=== PATIENT | male | born 1950 | race Caucasian/White ===

== ENCOUNTER 2017-07-23 15:03 | Emergency (ER) | payer MEDICARE ==
--- NOTE | 2017-07-23 15:16 | ER Document Report ---
ED Medical Screen (RME) - General Chief Complaint: Arm Problem Stated Complaint: LEFT ARM INJURY Time Seen by Provider: 07/23/17 15:13 Mode of Arrival: Ambulatory Information source: Patient TRAVEL OUTSIDE OF THE [place] IN LAST 30 DAYS: No - HPI Patient complains to provider of: L arm bruising Onset: Other - pt with laceration to L arm 2 days (was sutured at [facility]) ago -- bruising started yesterday and has increased to entire arm today. Not currently on blood thinners. - Related Data Allergies/Adverse Reactions: Penicillins Allergy (Verified 07/23/17 15:07) Past Medical History Renal/ Medical History: Denies: Hx Peritoneal Dialysis Physical Exam - Vital signs Vitals: Temp Pulse Resp BP Pulse Ox 98.1 F 73 16 148/86 H 98 07/23/17 15:06 07/23/17 15:06 07/23/17 15:06 07/23/17 15:06 07/23/17 15:06 Course - Vital Signs Vital signs: Temp Pulse Resp BP Pulse Ox 98.1 F 73 16 148/86 H 98 07/23/17 15:06 07/23/17 15:06 07/23/17 15:06 07/23/17 15:06 07/23/17 15:06
[2017-07-23 16:17] LABS: ABSOLUTE EOSINOPHILS # (AUTO) 0.3 10^3/uL (0.0-0.6); ABSOLUTE LYMPHOCYTES (AUTO) 1.3 10^3/uL (0.5-4.7); ABSOLUTE MONOCYTES (AUTO) 0.6 10^3/uL (0.1-1.4); ABSOLUTE NEUT (AUTO) 4.3 10^3/uL (1.7-8.2); BASOPHILS % (AUTO) 0.5 % (0-2); EOSINOPHILS % (AUTO) 4.3 % (0-6); HEMATOCRIT 40.9 % (37.9-51.0); HEMOGLOBIN 14.4 g/dL (13.5-17.0); HGB HCT DIFFERENCE 2.3; LYMPHOCYTES % (AUTO) 20.1 % (13-45); MEAN CORPUSCULAR HEMOGLOBIN 32.2 pg (27.0-33.4); MEAN CORPUSCULAR HGB CONC 35.1 g/dL (32.0-36.0); MEAN CORPUSCULAR VOLUME 92 fl (80-97); MONOCYTES % (AUTO) 9.1 % (3-13); RED BLOOD COUNT 4.47 10^6/uL (4.35-5.55); RED CELL DISTRIBUTION WIDTH 12.6 % (11.5-14.0); WHITE BLOOD COUNT 6.5 10^3/uL (4.0-10.5)
[2017-07-23 16:31] LABS: PROTHROMBIN TIME 12.7 SEC (11.4-15.4)
[2017-07-23 16:32] LABS: ALANINE AMINOTRANSFERASE 66 U/L (21-72); ALKALINE PHOSPHATASE 90 U/L (38-126); ANION GAP 11 (5-19); ASPARTATE AMINO TRANSFERASE 40 U/L (17-59); BILIRUBIN,DIRECT 0.3 mg/dL (0.0-0.4); BILIRUBIN,TOTAL 0.7 mg/dL (0.2-1.3); BLOOD UREA NITROGEN 17 mg/dL (7-20); CALCIUM 9.2 mg/dL (8.4-10.2); CARBON DIOXIDE 28 mmol/L (22-30); CHLORIDE 104 mmol/L (98-107); GLUCOSE 116 mg/dL (75-110); PARTIAL THROMBOPLASTIN TIME 28.2 SEC (23.5-35.8); POTASSIUM 3.8 mmol/L (3.6-5.0); SODIUM 143.1 mmol/L (137-145); TOTAL PROTEIN 6.6 g/dL (6.3-8.2)
--- NOTE | 2017-07-23 19:24 | ER Document Report ---
ED General - General Chief Complaint: Arm Problem Stated Complaint: LEFT ARM INJURY Time Seen by Provider: 07/23/17 15:13 Mode of Arrival: Ambulatory Information source: Patient Notes: This is a 67-year-old man status post recent arm laceration which was sutured out of town 3 days ago who presents to the emergency room with a ecchymoses down his left arm. Patient states that there was a lot of swelling around the sutured site. He states the swelling is not increased. He is just noticed the bruising come down below the elbow and extend into the forearm. He denies any fever, chills, warmth or discharge. He denies any significant pain. Again, he denies any increased swelling of the left upper extremity. He states he was working with a saw and had initially cut himself over the left biceps. He received several sutures at that outside ER and his tetanus is up-to-date. TRAVEL OUTSIDE OF THE [place] IN LAST 30 DAYS: No - HPI Onset: Just prior to arrival Onset/Duration: Gradual Quality of pain: No pain Severity: None Pain Level: Denies Associated symptoms: denies: Chest pain, Fever, Shortness of breath Exacerbated by: Denies Relieved by: Denies Similar symptoms previously: Yes Recently seen / treated by doctor: Yes - Related Data Allergies/Adverse Reactions: Penicillins Allergy (Verified 07/23/17 15:07) Home Medications: Current Home Medications Cetirizine HCl [Zyrtec 10 mg Tablet] 10 tab PO DAILY 07/23/17 [History] Lisinopril 10 tab PO DAILY 07/23/17 [History] Lovastatin [Altoprev] 20 mg PO DAILY 07/23/17 [History] Multivit-Mins/Iron/Folic/Lycop [Centrum Men's Tablet] 1 each PO DAILY 07/23/17 [ History] Ranitidine HCl [Zantac 150 mg Tablet] 150 tab PO DAILY 07/23/17 [History] Past Medical History - General Information source: Patient - Social History Smoking Status: Never Smoker Cigarette use (# per day): No Chew tobacco use (# tins/day): No Frequency of alcohol use: None Drug Abuse: None Lives with: Family Family History: None Patient has suicidal ideation: No Patient has homicidal ideation: No - Medical History Medical History: Negative Renal/ Medical History: Denies: Hx Peritoneal Dialysis Surgical Hx: Negative Review of Systems - Review of Systems Constitutional: denies: Chills, Fever EENT: No symptoms reported Cardiovascular: No symptoms reported Respiratory: No symptoms reported Gastrointestinal: No symptoms reported Genitourinary: No symptoms reported Male Genitourinary: No symptoms reported Musculoskeletal: See HPI Skin: See HPI Hematologic/Lymphatic: No symptoms reported Neurological/Psychological: No symptoms reported Physical Exam - Vital signs Vitals: Temp Pulse Resp BP Pulse Ox 98.1 F 73 16 148/86 H 98 07/23/17 15:06 07/23/17 15:06 07/23/17 15:06 07/23/17 15:06 07/23/17 15:06 Notes: Physical exam: GENERAL: 67-year-old male, alert and oriented 3, no acute distress HEAD: Atraumatic, normocephalic. EYES: Pupils equal round and reactive to light, extraocular movements intact, sclera anicteric, conjunctiva are normal. ENT: Moist mucous membranes. NECK: Normal range of motion, supple LUNGS: Breath sounds clear to auscultation bilaterally and equal. No wheezes rales or rhonchi. HEART: Regular rate and rhythm without murmurs, rubs or gallops. ABDOMEN: Soft, normoactive bowel sounds. No tenderness to palpation. No guarding, no rebound. No masses appreciated. EXTREMITIES: Patient has a sutured laceration to the left biceps. There is some swelling to the area consistent with a hematoma. There is ecchymoses that extends down from that area beyond the elbow and into the forearm. The distal radial pulses good. Distal cap refill is good. There is no cyanosis or swelling of the hand. He is no altered sensation. Patient is actually stated that the swelling around the suture is actually gone down. NEUROLOGICAL: Cranial nerves II through XII grossly intact. Normal speech, moving all extremities. PSYCH: Normal mood, normal affect. SKIN: Hematoma to the left biceps, ecchymoses to the left forearm Course - Re-evaluation Re-evalutation: 07/24/17 03:47 Is no evidence of infection here. I discussed with the patient that it is the blood that is draining down from the site around where the laceration was repaired. He states that the swelling around the suture site is actually gone down somewhat. He has denied any fever or discharge. He will follow-up in a week to get his sutures taken out when he is back home. - Vital Signs Vital signs: Temp Pulse Resp BP Pulse Ox 97.6 F 65 18 139/83 H 100 07/23/17 19:36 07/23/17 19:36 07/23/17 19:36 07/23/17 19:36 07/23/17 19:36 - Laboratory Result Diagrams: 07/23/17 16:01 07/23/17 16:01 Laboratory results interpreted by me: 07/23/17 16:01 Glucose 116 H Discharge - Discharge Clinical Impression: left arm hematoma Condition: Stable Disposition: HOME, SELF-CARE Additional Instructions: As we discussed, the bruising down the arm his blood which is been around the laceration which is a normal phenomenon. I would like you to return to the ER if swelling increases, you have increasing pain to the area, or if you any concerns that it is getting worse. I would like keep the arm elevated at night to allow venous drainage. Thank you for choosing [facility] for your care. The examination and treatment you have received in the Emergency Department today has been rendered on an emergency basis only and is not intended to be a substitute for complete medical care. You should contact your follow-up physician as it is important that he or she examine you for any new or remaining problems. If given a copy of any lab tests or radiology reports, please bring them with you when you see your physician. If your problem worsens or new symptoms appear and you are unable to arrange prompt follow-up care, return to the Emergency Department. Specific signs to look out for: Increasing swelling, fever (temperature 100.5), pain around the laceration site , numbness or tingling to the fingers The pain medicine you're taking prescribed as a narcotic. There are several important things you should know about this medicine: 1. Taking narcotics for too long can lead to physical and mental dependence. Take this medicine only if really needed and in the lowest quantity to achieve pain relief. 2. Do not drink alcohol while on this medicine. Alcohol interacts with narcotics and the combination can be dangerous. 3. Do not drive or operate machinery while on this medicine. 4. Narcotics do cause constipation, so drink plenty of fluids and daily stool softeners. Prescriptions: Oxycodone HCl 5 mg PO Q6HP PRN #25 tablet PRN Reason:
[2017-07-23 19:37] VITALS: BP 139/83
== END 2017-07-23 19:37 | disposition home or self-care (01) ==
LOC: ER 15:03
DX: S50.02XA Contusion of left elbow, initial encounter (principal); S51.012D Laceration without foreign body of left elbow, subsequent encounter; X58.XXXD Exposure to other specified factors, subsequent encounter; Z79.899 Other long term (current) drug therapy
CPT/HCPCS: 36415; 80053; 85025; 85610; 85730; 99283